=== PATIENT | female | born 1950 | race Caucasian/White ===

== ENCOUNTER → 2020-08-18 | Outpatient (CLI) | payer MEDICARE, BC ==
[~2020-08-18] MED LIST: [UNRECOGNIZED DRUG - OTHER]
[2020-08-18 10:33] LABS: MICROSCOPIC NOT IND
[2020-08-18 10:36] LABS: BASOPHILS % (AUTO) 1 % (0-1); EOSINOPHILS % (AUTO) 1 % (1-7); LYMPHOCYTES % (AUTO) 22 % (22-44); MEAN CORPUSCULAR HGB CONC 33.6 g/dL (32.4-35.8); MEAN PLATELET VOLUME 9.8 fL (7.4-10.4); MONOCYTES % (AUTO) 8 % (2-9); NEUTROPHILS % (AUTO) 69 % (42-75); PLATELET COUNT 208 x10^3/uL (130-400); RED BLOOD COUNT 5.26 x10^6/uL (3.82-5.3); RED CELL DISTRIBUTION WIDTH 13.4 % (9.6-15.2)
[2020-08-18 10:45] LABS: ALANINE AMINOTRANSFERASE 76 U/L (12-78); CALCIUM 9.3 mg/dL (8.5-10.1); CHLORIDE 104 mmol/L (98-107); CREATININE 0.68 mg/dL (0.55-1.02)
[2020-08-18 10:46] LABS: MD NO
[2020-08-18 10:47] LABS: ALKALINE PHOSPHATASE 146 U/L (45-117); BILIRUBIN,TOTAL 0.3 mg/dL (0.2-1.0); TOTAL PROTEIN 7.5 g/dL (6.4-8.2)
[2020-08-18 10:55] LABS: ANION GAP 7 mmol/L (5-15)
[2020-08-18 11:24] LABS: INTERNATIONAL NORMALIZED RATIO 1.02 (0.93-1.1); PROTHROMBIN TIME 10.9 Seconds (9.6-11.5)
== END | disposition home or self-care (01) ==
LOC: STAR 09:04
PROVIDERS: ATTEND Neurological Surgery
DX: Z01.810 Encounter for preprocedural cardiovascular examination (principal); Z01.811 Encounter for preprocedural respiratory examination; Z01.812 Encounter for preprocedural laboratory examination; M54.2 Cervicalgia; M54.12 Radiculopathy, cervical region; M47.892 Other spondylosis, cervical region; S12.49 Other fracture of fifth cervical vertebra; R79.1 Abnormal coagulation profile; R82.90 Unspecified abnormal findings in urine; R94.31 Abnormal electrocardiogram [ECG] [EKG]; X58.XXXD Exposure to other specified factors, subsequent encounter; Z20.822 Contact with and (suspected) exposure to COVID-19
CPT/HCPCS: 36415; 71046; 80053; 81003; 85025; 85610; 85730; 93005; U0003

== ENCOUNTER 2020-08-24 09:15 | Inpatient (IN) | payer MEDICARE, BC ==
[~2020-08-24] VITALS: Ht 162.6 cm; Wt 77.3 kg
[2020-08-24] MEDS ORDERED: FENTANYL PF 250 MCG/5ML ONE (09:23)
[2020-08-24] MEDS ORDERED: MIDAZOLAM 1 MG/ML, 2ML ONE (09:23)
[2020-08-24] MEDS ORDERED: LACTATED RINGERS 1,000 ML IV SCH (09:30)
[2020-08-24] MEDS ORDERED: PROPOFOL 50 ML ONE (09:33)
[2020-08-24] MEDS ORDERED: LEVO75TA5 PO (09:40)
[2020-08-24] MEDS ORDERED: ESCI20TA8 PO (09:40)
[2020-08-24] MEDS ORDERED: SIMV20TA19 PO (09:40)
[2020-08-24] MEDS ORDERED: [UNRECOGNIZED DRUG - CODE] PO (09:40)
[2020-08-24] MEDS ORDERED: FLUT16SP24 NAS (09:40)
[2020-08-24] MEDS ORDERED: TRAZ-96 PO (09:40)
[2020-08-24] MEDS ORDERED: METH-640 PO (09:40)
[2020-08-24] MEDS ORDERED: DICL100G29 TP (09:40)
[2020-08-24] MEDS ORDERED: CHLORHEXIDINE 15 ML UDC ONE (09:46)
[2020-08-24] MEDS ORDERED: CHLORHEXIDINE 15 ML UDC PO ONE (10:00)
[2020-08-24] MEDS ORDERED: EPINEPHRINE 1 MG/ML, 1ML ONE (10:25)
[2020-08-24] MEDS ORDERED: BUPIVACAINE/PF 0.5% ONE (10:25)
[2020-08-24] MEDS ORDERED: BACITRACIN 50,000 UNIT ONE (10:26)
[2020-08-24] MEDS ORDERED: NEOSTIGMINE 1 MG/ML, 10ML ONE (10:29)
[2020-08-24] MEDS ORDERED: GLYCOPYRROLATE 0.2MG/1ML, 5ML ONE (10:29)
[2020-08-24] MEDS ORDERED: ONDANSETRON 2MG/ML, 2ML ONE (10:29)
[2020-08-24] MEDS ORDERED: DEXAMETHASONE 4 MG/ML, 1ML ONE (10:29)
[2020-08-24] MEDS ORDERED: CEFAZOLIN 1,000 MG ONE (10:29)
[2020-08-24] MEDS ORDERED: ONDANSETRON 2MG/ML, 2ML IVPush PRN (10:30)
[2020-08-24] MEDS ORDERED: HYDROmorphone 1 MG/ML, 1ML INJ IVPush PRN (10:30)
[2020-08-24] MEDS ORDERED: METHOCARBAMOL 1,000 MG in DEXTROSE 5% 100 ML IV PRN (10:30)
[2020-08-24] MEDS ORDERED: LORazepam 2 MG/ML, 1ML IVPush PRN (10:30)
[2020-08-24] MEDS ORDERED: hydrALAzine 20 MG/ML, 1ML IV PRN (10:30)
[2020-08-24] MEDS ORDERED: MEPERIDINE/PF 25MG/0.5ML IVPush PRN (10:30)
[2020-08-24] MEDS ORDERED: PROMETHAZINE 25 MG/ML, 1ML IVPush PRN (10:30)
[2020-08-24] MEDS ORDERED: LABETALOL 5MG/ML, 20ML IV PRN (10:30)
[2020-08-24] MEDS ORDERED: ACETAMINOPHEN 325 MG TABLET PO PRN (10:30)
[2020-08-24] MEDS ORDERED: OXYcodone 5 MG/5 ML ORAL.SOL UDC PO PRN (10:30)
[2020-08-24] MEDS ORDERED: FENTANYL PF 100 MCG/2ML IV PRN (10:30)
[2020-08-24] MEDS ORDERED: FENTANYL PF 100 MCG/2ML ONE (11:50)
[2020-08-24] MEDS ORDERED: ACETAMINOPHEN 650 MG/20.3 ML UDC ONE (13:57)
[2020-08-24] MEDS ORDERED: OXYcodone 5 MG/5 ML ORAL.SOL UDC ONE (13:58)
[2020-08-24] MEDS ORDERED: PHARMACY MAY ADJ FOR RENAL FX MC PRN (14:30)
[2020-08-24] MEDS ORDERED: OXYcodone IR 5MG TABLET PO PRN (14:30)
[2020-08-24] MEDS ORDERED: DIPHENHYDRAMINE 25 MG CAPSULE PO PRN (14:30)
[2020-08-24] MEDS ORDERED: MAGNESIUM HYDROXIDE 8%, 30ML UDC PO PRN (15:00)
[2020-08-24] MEDS ORDERED: DIPHENHYDRAMINE 50 MG/ML, 1ML IM PRN (15:00)
[2020-08-24] MEDS ORDERED: DIPHENHYDRAMINE 50 MG/ML, 1ML IVPush PRN (15:00)
[2020-08-24] MEDS ORDERED: MEPERIDINE/PF 100 MG/ML IM PRN (15:00)
[2020-08-24] MEDS ORDERED: PROMETHAZINE 25 MG/ML, 1ML IM PRN (15:00)
[2020-08-24] MEDS ORDERED: BISACODYL 10 MG SUPP PR PRN (15:00)
[2020-08-24] MEDS ORDERED: ONDANSETRON 2MG/ML, 2ML IV PRN (15:00)
[2020-08-24] MEDS ORDERED: HYDROcodone/APAP 5/325 TABLET PO PRN (15:00)
[2020-08-24] MEDS: LABETALOL 5MG/ML, 20ML IV SCH ×2 (15:48→23:00)
[2020-08-24] MEDS: D5%-0.9% NACL+KCL 20MEQ 1,000 ML IV SCH (15:51)
[2020-08-24] MEDS: OXYcodone IR 5MG TABLET PO PRN ×2 (18:08→22:05)
[2020-08-24] MEDS: CEFAZOLIN PMX 1GM/50ML 50 ML IVPB SCH (18:45)
[2020-08-24 19:16] VITALS: BP 133/63
[2020-08-24] MEDS ORDERED: SIMVASTATIN 20 MG TABLET PO SCH (21:00)
[2020-08-24] MEDS ORDERED: TRAZODONE 50MG TABLET PO SCH (21:00)
[2020-08-24] MEDS: METHOCARBAMOL 750 MG in DEXTROSE 5% 100 ML IV SCH (22:05)
[2020-08-24 23:45] VITALS: BP 106/63
[2020-08-25] MEDS: D5%-0.9% NACL+KCL 20MEQ 1,000 ML IV SCH ×2 (01:00→05:38)
[2020-08-25] MEDS: OXYcodone IR 5MG TABLET PO PRN ×3 (02:09→12:44)
[2020-08-25] MEDS: CEFAZOLIN PMX 1GM/50ML 50 ML IVPB SCH (02:51)
[2020-08-25 03:50] VITALS: BP 106/61
[2020-08-25] MEDS: LABETALOL 5MG/ML, 20ML IV SCH (05:25)
[2020-08-25] MEDS: METHOCARBAMOL 750 MG in DEXTROSE 5% 100 ML IV SCH (05:38)
[2020-08-25] MEDS ORDERED: LEVOTHYROXINE 75 MCG TABLET PO SCH (06:00)
[2020-08-25] MEDS ORDERED: METH-640 PO (07:57)
[2020-08-25] MEDS ORDERED: OXYC5TAB98 PO (07:57)
[2020-08-25 08:00] VITALS: BP 116/71
[2020-08-25] MEDS ORDERED: methylPREDNISolone*ACETATE* 80 MG/ML IM ONE (08:00)
[2020-08-25] MEDS ORDERED: FLUTICASONE NASAL SPRAY 16GM NAS SCH (09:00)
[2020-08-25] MEDS ORDERED: SENNA/DOCUSATE TABLET PO SCH (09:00)
[2020-08-25] MEDS ORDERED: ESCITALOPRAM 10MG TABLET PO SCH (09:00)
[2020-08-25] MEDS ORDERED: ENOXAPARIN 40 MG/0.4 ML SQ SCH ×2 (12:30)
[2020-08-25 12:46] VITALS: BP 124/62
[2020-08-25] MEDS ORDERED: METH4TAB2 PO (12:55)
[2020-08-26] MEDS ORDERED: METHOCARBAMOL 750 MG TABLET PO SCH (21:00)
== END 2020-08-25 13:15 | disposition home or self-care (01) | DRG 473 ==
LOC: ORIP 09:21 → 4NE 14:18 → DCLOUNGE 08-25 13:05
PROVIDERS: ADMIT Neurological Surgery; ATTEND Neurological Surgery
PROC: 0RG10A0 Fusion of Cervical Vertebral Joint with Interbody Fusion Device, Anterior Approach, Anterior Column, Open Approach (ICD-10-PCS; 2020-08-24)
PROC: 00NW0ZZ Release Cervical Spinal Cord, Open Approach (ICD-10-PCS; 2020-08-24)
PROC: 01N10ZZ Release Cervical Nerve, Open Approach (ICD-10-PCS; 2020-08-24)
PROC: 4A11X4G Monitoring of Peripheral Nervous Electrical Activity, Intraoperative, External Approach (ICD-10-PCS; 2020-08-24)
PROC: 0RB30ZZ Excision of Cervical Vertebral Disc, Open Approach (ICD-10-PCS; principal; 2020-08-24 11:30)
DX: M48.02 Spinal stenosis, cervical region (principal); M43.12 Spondylolisthesis, cervical region; M47.22 Other spondylosis with radiculopathy, cervical region; R13.10 Dysphagia, unspecified; Z88.8 Allergy status to other drugs, medicaments and biological substances
CPT/HCPCS: 36415; 72040; 82962; 86850; 86900; 95938; 95941; C1713; G0378; J0171; J0690; J1100; J1650; J2250; J2405; J2704; J2710; J3010; C1889; J1040; J2800; J3480; J7120